=== PATIENT | male | born 1985 | race Two or more races ===

== ENCOUNTER 2024-04-19 17:59 | Emergency (ER) | payer BC ==
[2024-04-19] MEDS: SODIUM CHLORIDE 0.9% 1,000 ML IV STA (20:14)
[2024-04-19] MEDS: MECLIZINE 12.5 MG TAB PO STA (20:14)
[2024-04-19 20:28] LABS: Basophils # (A) 0.1 k/uL (0-0.2); Basophils % (A) 1 %; Eosinophils # (A) 0.2 k/uL (0-0.7); Eosinophils % (A) 2 %; HCT 44.2 % (39.0-53.0); HGB 14.2 gm/dL (13.0-17.5); Lymphocytes # (A) 2.8 k/uL (1.0-4.8); Lymphocytes % (A) 26 %; MCHC 32.2 g/dL (31.0-37.0); MCV 84.1 fL (80.0-100.0); Monocytes # (A) 0.6 k/uL (0-1.0); Monocytes % (A) 5 %; Neutrophils % (A) 65 %; Platelet Count 261 k/uL (150-450); RBC 5.26 m/uL (4.30-5.90); RDW 13.3 % (11.5-15.5); WBC 10.9 k/uL (3.8-10.6)
--- NOTE | 2024-04-19 20:36 | ED ---
Dizziness HPI - General Chief Complaint: Dizziness Stated Complaint: Syncope, vomiting, swollen legs Time Seen by Provider: 04/19/24 19:16 Source: patient Mode of arrival: ambulatory Limitations: no limitations - History of Present Illness Initial Comments: 39-year-old male presenting with chief complaint of dizziness. States that yesterday he restarted his Effexor. That evening he had 2 sips of his 's alcoholic drink. States that he later became dizzy and he did pass out at 1 point. states that he was sweaty and his coloring was off. States that since then he has felt a bit dizzy. Also admits to nausea with 1 episode of vomiting. No head injury. No chest pain or difficulty breathing. No numbness or tingling. - Related Data Allergies Allergy/AdvReac Type Severity Reaction Status Date / Time No Known Allergies Allergy Verified 04/19/24 18:05 Review of Systems ROS Statement: Those systems with pertinent positive or pertinent negative responses have been documented in the HPI. ROS Other: All systems not noted in ROS Statement are negative. Past Medical History Past Medical History: Asthma History of Any Multi-Drug Resistant Organisms: None Reported Past Surgical History: No Surgical Hx Reported Past Psychological History: ADD/ADHD, Anxiety, Depression Smoking Status: Current every day smoker Past Alcohol Use History: Occasional Past Drug Use History: Marijuana General Exam Limitations: no limitations General appearance: alert, in no apparent distress Head exam: Present: atraumatic, normocephalic, normal inspection Eye exam: Present: normal appearance, PERRL, EOMI Pupils: Present: normal accommodation Neck exam: Present: normal inspection. Absent: meningismus Respiratory exam: Absent: respiratory distress Cardiovascular Exam: Present: regular rate Extremities exam: Present: full ROM Neurological exam: Present: alert, oriented X3 Expanded Patient oriented to: Present: person, place, time Speech: Present: fluid speech Cranial nerves: EOM's Intact: Normal Motor strength exam: RUE: 5, LUE: 5, RLE: 5, LLE: 5 Eye Response: (4) open spontaneously Motor Response: (6) obeys commands Verbal Response: (5) oriented Scot Total: 15 Psychiatric exam: Present: normal affect, normal mood Skin exam: Present: warm, dry Course Vital Signs 04/19/24 04/19/24 04/20/24 18:02 23:45 00:07 Temperature 97.7 F 98.6 F Pulse Rate 70 63 Respiratory 16 13 Rate Blood Pressure 150/96 Blood Pressure 145/85 [Right Arm Sitting] Blood Pressure 150/87 [Right Arm Standing] Blood Pressure 136/84 [Right Arm Supine] O2 Sat by Pulse 99 98 Oximetry EKG Findings - EKG Comments: EKG Findings:: Sinus rhythm ventricular rate 62. CA interval 165. QRS 102. QT 383. QTc 387. Medical Decision Making - Medical Decision Making Was pt. sent in by a medical professional or institution (, PA, ADULT DAY CARE WORKER, urgent care, hospital, or group home...) When possible be specific @ -No Did you speak to anyone other than the patient for history (EMS, parent, family, police, friend...)? What history was obtained from this source @ -No Did you review nursing and triage notes (agree or disagree)? Why? @ -I reviewed and agree with nursing and triage notes Were old charts reviewed (outside hosp., previous admission, EMS record, old EKG, old radiological studies, urgent care reports/EKG's, group home records)? Report findings @ -No old charts were reviewed Differential Diagnosis (chest pain, altered mental status, abdominal pain women, abdominal pain men, vaginal bleeding, weakness, fever, dyspnea, syncope, headache, dizziness, GI bleed, back pain, seizure, CVA, palpatations, mental health, musculoskeletal)? @ -MDM Differential Dizziness: Benign paroxysmal positional Vertigo, Menieres disease, otitis media, acoustic neuroma, vertebrobasilar insufficiency, cerebellar stroke, encephalitis, hypovolemic, arrhythmia, coronary artery syndrome, anemia this is not meant to be an all-inclusive list EKG interpreted by me (3pts min.). @ -As above X-rays interpreted by me (1pt min.). @ -Chest x-ray shows no acute process CT interpreted by me (1pt min.). @ -None done U/S interpreted by me (1pt. min.). @ -None done What testing was considered but not performed or refused? (CT, X-rays, U/S, labs)? Why? @ -None What meds were considered but not given or refused? Why? @ -None Did you discuss the management of the patient with other professionals (professionals i.e. Dr., PA, ADULT DAY CARE WORKER, lab, RT, psych nurse, social media sr strategy manager, wool washer, teacher, assistant chief nursing officer, manager of case)? Give summary @ -No Was smoking cessation discussed for >3mins.? @ -No Was critical care preformed (if so, how long)? @ -No Were there social determinants of health that impacted care today? How? (Homelessness, low income, unemployed, alcoholism, drug addiction, transportation, low edu. Level, literacy, decrease access to med. care, half-way, rehab)? @ -No Was there de-escalation of care discussed even if they declined (Discuss DNR or withdrawal of care, Hospice)? DNR status @ -No What co-morbidities impacted this encounter? (DM, HTN, Smoking, COPD, CAD, Cancer, CVA, ARF, Chemo, Hep., AIDS, mental health diagnosis, sleep apnea, morbid obesity)? @ -None Was patient admitted / discharged? Hospital course, mention meds given and route, prescriptions, significant lab abnormalities, going to OR and other pertinent info. @ -39-year-old male presenting with chief complaint of dizziness. Started last night, he restarted taking his Effexor and also did have some alcohol afterwards. He vomited and was feeling dizzy. History and physical examination are conducted. No focal neurological deficits. Negative orthostatic vitals. WBC 10.9, remainder of his laboratory studies are unremarkable. Chest x-ray shows no acute process and EKG shows sinus rhythm. Patient given IV fluids and meclizine, on reassessment he reports resolution of his symptoms. He is educated on today's findings. Discharged. Follow-up with PCP. Report back to ER with any new or worsening symptoms. Discussed return parameters and answered all questions. Patient conveyed verbal understanding and agreed to the plan. I discussed this case in detail with my attending Dr. Santiago Undiagnosed new problem with uncertain prognosis? @ -No Drug Therapy requiring intensive monitoring for toxicity (Heparin, Nitro, Insulin, Cardizem)? @ -No Were any procedures done? @ -No Diagnosis/symptom? @ -Dizziness Acute, or Chronic, or Acute on Chronic? @ -Acute Uncomplicated (without systemic symptoms) or Complicated (systemic symptoms)? @ -Uncomplicated Side effects of treatment? @ -No Exacerbation, Progression, or Severe Exacerbation? @ -No Poses a threat to life or bodily function? How? (Chest pain, USA, MS, pneumonia, PE, COPD, DKA, ARF, appy, cholecystitis, CVA, Diverticulitis, Homicidal, Suicid al, threat to staff... and all critical care pts) @ -Unlikely - Lab Data Result diagrams: 04/19/24 20:10 04/19/24 20:10 Lab Results 04/19/24 04/19/24 04/19/24 Range/Units 20:10 20:10 20:10 WBC 10.9 H (3.8-10.6) k/uL RBC 5.26 (4.30-5.90) m/uL Hgb 14.2 (13.0-17.5) gm/dL Hct 44.2 (39.0-53.0) % MCV 84.1 (80.0-100.0) fL MCH 27.0 (25.0-35.0) pg MCHC 32.2 (31.0-37.0) g/dL RDW 13.3 (11.5-15.5) % Plt Count 261 (150-450) k/uL MPV 7.0 Neutrophils % 65 % Lymphocytes % 26 % Monocytes % 5 % Eosinophils % 2 % Basophils % 1 % Neutrophils # 7.0 (1.3-7.7) k/uL Lymphocytes # 2.8 (1.0-4.8) k/uL Monocytes # 0.6 (0-1.0) k/uL Eosinophils # 0.2 (0-0.7) k/uL Basophils # 0.1 (0-0.2) k/uL PT 10.7 (10.0-12.5) sec INR 1.0 (<1.2) Sodium 137 (137-145) mmol/L Potassium 4.3 (3.5-5.1) mmol/L Chloride 103 (98-107) mmol/L Carbon Dioxide 27 (22-30) mmol/L Anion Gap 7 mmol/L BUN 13 (9-20) mg/dL Creatinine 0.94 (0.66-1.25) mg/dL Est GFR (CKD-EPI)AfAm >90 (>60 ml/min/1.73 sqM) Est GFR (CKD-EPI)NonAf >90 (>60 ml/min/1.73 sqM) Glucose 87 (74-99) mg/dL Plasma Lactic Acid William (0.7-2.0) mmol/L Calcium 9.1 (8.4-10.2) mg/dL Total Bilirubin 0.6 (0.2-1.3) mg/dL AST 21 (17-59) U/L ALT 23 (4-49) U/L Alkaline Phosphatase 67 (38-126) U/L Troponin I (0.000-0.034) ng/mL Total Protein 6.9 (6.3-8.2) g/dL Albumin 4.1 (3.5-5.0) g/dL 04/19/24 04/19/24 Range/Units 20:10 20:10 WBC (3.8-10.6) k/uL RBC (4.30-5.90) m/uL Hgb (13.0-17.5) gm/dL Hct (39.0-53.0) % MCV (80.0-100.0) fL MCH (25.0-35.0) pg MCHC (31.0-37.0) g/dL RDW (11.5-15.5) % Plt Count (150-450) k/uL MPV Neutrophils % % Lymphocytes % % Monocytes % % Eosinophils % % Basophils % % Neutrophils # (1.3-7.7) k/uL Lymphocytes # (1.0-4.8) k/uL Monocytes # (0-1.0) k/uL Eosinophils # (0-0.7) k/uL Basophils # (0-0.2) k/uL PT (10.0-12.5) sec INR (<1.2) Sodium (137-145) mmol/L Potassium (3.5-5.1) mmol/L Chloride (98-107) mmol/L Carbon Dioxide (22-30) mmol/L Anion Gap mmol/L BUN (9-20) mg/dL Creatinine (0.66-1.25) mg/dL Est GFR (CKD-EPI)AfAm (>60 ml/min/1.73 sqM) Est GFR (CKD-EPI)NonAf (>60 ml/min/1.73 sqM) Glucose (74-99) mg/dL Plasma Lactic Acid William 0.8 (0.7-2.0) mmol/L Calcium (8.4-10.2) mg/dL Total Bilirubin (0.2-1.3) mg/dL AST (17-59) U/L ALT (4-49) U/L Alkaline Phosphatase (38-126) U/L Troponin I <0.012 (0.000-0.034) ng/mL Total Protein (6.3-8.2) g/dL Albumin (3.5-5.0) g/dL Disposition Clinical Impression: Dizziness Disposition: HOME SELF-CARE Condition: Good Instructions (If sedation given, give patient instructions): Dizziness (ED) Additional Instructions: Follow up with PCP. Report back to ER with any new or worsening symptoms. Is patient prescribed a controlled substance at d/c from ED?: No Referrals: Nonstaff,Physician [Primary Care Provider] - 1-2 days Time of Disposition: 23:46
[2024-04-19 20:45] LABS: Prothrombin Time 10.7 sec (10.0-12.5)
[2024-04-19 20:51] LABS: ALT 23 U/L (4-49); AST 21 U/L (17-59); African American GFR (CKD) >90 (>60 ml/min/1.73 sqM); Albumin 4.1 g/dL (3.5-5.0); Alkaline Phosphatase 67 U/L (38-126); Anion Gap 7 mmol/L; Blood Urea Nitrogen 13 mg/dL (9-20); Calcium 9.1 mg/dL (8.4-10.2); Carbon Dioxide 27 mmol/L (22-30); Chloride 103 mmol/L (98-107); Glucose 87 mg/dL (74-99); Non-African American GFR(CKD) >90 (>60 ml/min/1.73 sqM); Potassium 4.3 mmol/L (3.5-5.1); Sodium 137 mmol/L (137-145); Total Bilirubin 0.6 mg/dL (0.2-1.3); Total Protein 6.9 g/dL (6.3-8.2)
--- NOTE | 2024-04-19 21:02 | XR ---
EXAMINATION TYPE: XR chest 2V DATE OF EXAM: 04/19/2024 8:57 PM CLINICAL INDICATION:Male, 39 years old with history of dizziness; [facility] COMPARISON: None TECHNIQUE: XR chest 2V Frontal and lateral views of the chest. FINDINGS: Lungs/Pleura: There is no evidence of pleural effusion, focal consolidation, or pneumothorax. Pulmonary vascularity: Unremarkable. Heart/mediastinum: Cardiomediastinal silhouette is unremarkable. Musculoskeletal: No acute osseous pathology. IMPRESSION: No acute cardiopulmonary disease/process. [facility], , 04/19/2024 9:00 PM
[2024-04-19 23:46] VITALS: BP 136/84
[2024-04-20 00:08] VITALS: PULSE 63; RESP 13; TEMP 98.6
== END 2024-04-20 00:04 | disposition home or self-care (01) ==
LOC: EC 17:59
CPT/HCPCS: 36415; 71046; 80053; 83605; 84484; 85025; 85610; 93005; 96360; 99284

== ENCOUNTER 2024-12-17 08:18 | Emergency (ER) | payer BC ==
[2024-12-17 08:25] VITALS: TEMP 97.7
--- NOTE | 2024-12-17 08:40 | ED ---
General Adult HPI - General Chief complaint: Syncope Stated complaint: passed out and hit head, indigestion Time Seen by Provider: 12/17/24 08:37 Source: patient, family (), RN notes reviewed, old records reviewed Mode of arrival: ambulatory Limitations: no limitations - History of Present Illness Initial comments: 39-year-old male presented to ER for evaluation of syncope. is aiding in HPI. Patient reports he was sitting in his garage smoking a cigarette when he suddenly became very nauseous. He states he stood up and went outside to vomit when he became extremely dizzy and lightheaded and passed out. reports he fell from a standing position straight backwards hitting his head on a car moon that immediately rolled away. She states he was unconscious long enough for her to "do 3 chest compressions". She states she did not check for a pulse prior to doing the compressions. reports patient's eyes appeared as if he was "not there". Patient then came to with continuous nauseous feeling. He denies any reoccurring bouts of emesis. No hematemesis or coffee-ground emesis. Patient denies any visual disturbances, weakness, chest pain, shortness of breath, urinary complaints, constipation/diarrhea. Patient admits to a history of diabetes but is not currently on any medications. reports this has happened 3 times in the past. No history of seizure. No other complaints no other injuries from fall - Related Data Allergies Allergy/AdvReac Type Severity Reaction Status Date / Time No Known Allergies Allergy Verified 12/17/24 08:25 Review of Systems ROS Statement: Those systems with pertinent positive or pertinent negative responses have been documented in the HPI. ROS Other: All systems not noted in ROS Statement are negative. Past Medical History Past Medical History: Asthma History of Any Multi-Drug Resistant Organisms: None Reported Past Surgical History: No Surgical Hx Reported Past Psychological History: ADD/ADHD, Anxiety, Depression Smoking Status: Current every day smoker Past Alcohol Use History: Occasional Past Drug Use History: Marijuana General Exam Limitations: no limitations General appearance: alert, in no apparent distress Head exam: Present: atraumatic, normocephalic, normal inspection Eye exam: Present: normal appearance, PERRL, EOMI. Absent: scleral icterus, conjunctival injection, periorbital swelling Pupils: Present: normal accommodation ENT exam: Present: normal exam, normal oropharynx, mucous membranes moist Respiratory exam: Present: normal lung sounds bilaterally. Absent: respiratory distress, wheezes, rales, rhonchi, stridor Cardiovascular Exam: Present: regular rate, normal rhythm, normal heart sounds. Absent: systolic murmur, diastolic murmur, rubs, gallop, clicks GI/Abdominal exam: Present: soft, normal bowel sounds. Absent: distended, tenderness, guarding, rebound, rigid Extremities exam: Present: normal inspection, full ROM, normal capillary refill. Absent: tenderness, pedal edema, joint swelling, calf tenderness Neurological exam: Present: alert, oriented X3, CN II-XII intact Skin exam: Present: warm, dry, intact, normal color. Absent: rash Course Vital Signs 12/17/24 12/17/24 12/17/24 08:20 09:05 10:12 Temperature 97.7 F Pulse Rate 58 L 57 L 59 L Respiratory 18 12 17 Rate Blood Pressure 141/94 118/81 O2 Sat by Pulse 98 97 99 Oximetry 12/17/24 11:02 Temperature Pulse Rate 58 L Respiratory 15 Rate Blood Pressure 123/91 O2 Sat by Pulse 97 Oximetry EKG Findings - EKG Comments: EKG Findings:: EKG taken at 8: 33 showing a sinus bradycardia. No ST segment elevations or depressions. No T wave inversions. Ventricular rate 59, NJ interval 172, QRS duration 98, QT/QTc 388/388 Medical Decision Making - Medical Decision Making Was pt. sent in by a medical professional or institution (, PA, FINANCIAL ACCOUNTING MANAGER, urgent care, hospital, or shelter...) When possible be specific @ -No Did you speak to anyone other than the patient for history (EMS, parent, family, police, friend...)? What history was obtained from this source @ -Significant other, at bedside, aiding in HPI and past medical history. Did you review nursing and triage notes (agree or disagree)? Why? @ -I reviewed and agree with nursing and triage notes Were old charts reviewed (outside hosp., previous admission, EMS record, old EKG, old radiological studies, urgent care reports/EKG's, shelter records)? Report findings @ -No old charts were reviewed Differential Diagnosis (chest pain, altered mental status, abdominal pain women, abdominal pain men, vaginal bleeding, weakness, fever, dyspnea, syncope, headache, dizziness, GI bleed, back pain, seizure, CVA, palpatations, mental health, musculoskeletal)? @ -Differential Syncope:Valvular disease, hypertrophic cardiomyopathy, pulmonary embolism, tamponade, tachycardia, bradycardia, IA, hypovolemia, hemorrhage, dissection, anemia, intracranial hemorrhage, seizure, hypoglycemia, carbon monoxide poisoning, this is not meant to be an all-inclusive list. EKG interpreted by me (3pts min.). @ -As above X-rays interpreted by me (1pt min.). @ -CXR interpreted me negative for acute focal consolidation, pneumothorax or pleural effusions. CT interpreted by me (1pt min.). @ -CT brain negative for acute intracranial hemorrhage or midline shift. U/S interpreted by me (1pt. min.). @ -None done What testing was considered but not performed or refused? (CT, X-rays, U/S, labs)? Why? @ -None What meds were considered but not given or refused? Why? @ -None Did you discuss the management of the patient with other professionals (professionals i.e. , PA, FINANCIAL ACCOUNTING MANAGER, lab, RT, psych nurse, social media job titles, brain picker, teacher, patrol community service officer, porter sample case)? Give summary @ -No Was smoking cessation discussed for >3mins.? @ -I discussed smoking cessation for greater than 3 minutes. The risk of smoking were discussed with the patient including but not limited to risks of cancer, stroke, coronary artery disease and COPD. Also discussed with patient were multiple methods of quitting smoking. Lastly we discussed the financial cost of smoking. Was critical care preformed (if so, how long)? @ -No Were there social determinants of health that impacted care today? How? (Homelessness, low income, unemployed, alcoholism, drug addiction, transportation, low edu. Level, literacy, decrease access to med. care, long-term, rehab)? @ -No Was there de-escalation of care discussed even if they declined (Discuss DNR or withdrawal of care, Hospice)? DNR status @ -No What co-morbidities impacted this encounter? (DM, HTN, Smoking, COPD, CAD, Cancer, CVA, ARF, Chemo, Hep., AIDS, mental health diagnosis, sleep apnea, morbid obesity)? @ -Asthma Was patient admitted / discharged? Hospital course, mention meds given and route, prescriptions, significant lab abnormalities, going to OR and other pertinent info. @ -Discharge. 39-year-old male presented to ER for evaluation of syncopal episode last night. Upon arrival patient, bradycardic at 58 bpm vitals otherwise acceptable limits. Patient in no signs of acute distress nontoxic- appearing. Patient ANO x 3. No acute neurological findings on exam. Laboratory studies obtained unimpressive. WBC 10.5 no left shift. Troponin undetectable, <0.012. No significant electrolyte abnormality. Urinalysis unremarkable. EKG showing sinus bradycardia no acute evidence of infarct or ischemia. Given patient reporting head injury with LOC per , CT brain was obtained and negative for acute intracranial process. Chest x-ray also negative for acute process. Upon reevaluation, patient resting comfortably in exam room no signs of acute distress. Patient and patient's educated on today's findings. Patient is requesting discharge at this time. He will be discharged in stable condition advised to follow-up closely with PCP in the next 1 to 2 days. Return parameters discussed. Patient verbally expressed understanding agree with care plan. Case discussed with ED attending by Dr. Hernandez. Undiagnosed new problem with uncertain prognosis? @ -No Drug Therapy requiring intensive monitoring for toxicity (Heparin, Nitro, Insulin, Cardizem)? @ -No Were any procedures done? @ -No Diagnosis/symptom? @ -Syncope Acute, or Chronic, or Acute on Chronic? @ -Acute Uncomplicated (without systemic symptoms) or Complicated (systemic symptoms)? @ -Uncomplicated Side effects of treatment? @ -No Exacerbation, Progression, or Severe Exacerbation? @ -No Poses a threat to life or bodily function? How? (Chest pain, USA, IA, pneumonia, PE, COPD, DKA, ARF, appy, cholecystitis, CVA, Diverticulitis, Homicidal, Suicidal, threat to staff... and all critical care pts) @ -Low at this time - Lab Data Result diagrams: 12/17/24 08:57 12/17/24 08:57 Lab Results 12/17/24 12/17/24 12/17/24 Range/Units 08:57 08:57 08:57 WBC 10.57 H (4.50-10.00) 10*3/uL RBC 5.08 (4.40-5.60) 10*6/uL Hgb 13.9 (13.0-17.0) g/dL Hct 41.5 (39.6-50.0) % MCV 81.7 (80.0-97.0) fL MCH 27.4 (27.0-32.0) pg MCHC 33.5 (32.0-37.0) g/dL Plt Count 262 (140-440) 10*3/uL MPV 9.9 (9.5-12.2) fL Immature Gran % (Auto) 0.3 % Neutrophils % 63.8 % Lymphocytes % 25.9 % Monocytes % 7.1 % Eosinophils % 2.4 % Basophils % 0.5 % Immature Gran # 0.03 (0.00-0.04) 10*3/uL Neutrophils # 6.75 (1.80-7.70) 10*3/uL Lymphocytes # 2.74 (0.90-5.00) 10*3/uL Monocytes # 0.75 (0.20-1.00) 10*3/uL Eosinophils # 0.25 (0.04-0.35) 10*3/uL Basophils # 0.05 (0.00-0.10) 10*3/uL PT 10.3 (10.0-12.5) sec INR 0.9 (<1.2) APTT 23.8 (22.0-30.0) sec Sodium 138 (137-145) mmol/L Potassium 4.1 (3.5-5.1) mmol/L Chloride 106 (98-107) mmol/L Carbon Dioxide 26 (22-30) mmol/L Anion Gap 6 mmol/L BUN 14 (9-20) mg/dL Creatinine 0.86 (0.66-1.25) mg/dL Est GFR (CKD-EPI)AfAm >90 (>60 ml/min/1.73 sqM) Est GFR (CKD-EPI)NonAf >90 (>60 ml/min/1.73 sqM) Glucose 110 H (74-99) mg/dL Plasma Lactic Acid William (0.7-2.0) mmol/L Calcium 8.8 (8.4-10.2) mg/dL Total Bilirubin 0.5 (0.2-1.3) mg/dL AST 20 (17-59) U/L ALT 28 (4-49) U/L Alkaline Phosphatase 61 (38-126) U/L Troponin I (0.000-0.034) ng/mL Total Protein 6.6 (6.3-8.2) g/dL Albumin 3.9 (3.5-5.0) g/dL Urine Color Urine Appearance (Clear) Urine pH (5.0-8.0) Ur Specific [place] (1.001-1.035) Urine Protein (Negative) Urine Glucose (UA) (Negative) Urine Ketones (Negative) Urine Blood (Negative) Urine Nitrite (Negative) Urine Bilirubin (Negative) Urine Urobilinogen (<2.0) mg/dL Ur Leukocyte Esterase (Negative) 12/17/24 12/17/24 12/17/24 Range/Units 08:57 08:57 10:00 WBC (4.50-10.00) 10*3/uL RBC (4.40-5.60) 10*6/uL Hgb (13.0-17.0) g/dL Hct (39.6-50.0) % MCV (80.0-97.0) fL MCH (27.0-32.0) pg MCHC (32.0-37.0) g/dL Plt Count (140-440) 10*3/uL MPV (9.5-12.2) fL Immature Gran % (Auto) % Neutrophils % % Lymphocytes % % Monocytes % % Eosinophils % % Basophils % % Immature Gran # (0.00-0.04) 10*3/uL Neutrophils # (1.80-7.70) 10*3/uL Lymphocytes # (0.90-5.00) 10*3/uL Monocytes # (0.20-1.00) 10*3/uL Eosinophils # (0.04-0.35) 10*3/uL Basophils # (0.00-0.10) 10*3/uL PT (10.0-12.5) sec INR (<1.2) APTT (22.0-30.0) sec Sodium (137-145) mmol/L Potassium (3.5-5.1) mmol/L Chloride (98-107) mmol/L Carbon Dioxide (22-30) mmol/L Anion Gap mmol/L BUN (9-20) mg/dL Creatinine (0.66-1.25) mg/dL Est GFR (CKD-EPI)AfAm (>60 ml/min/1.73 sqM) Est GFR (CKD-EPI)NonAf (>60 ml/min/1.73 sqM) Glucose (74-99) mg/dL Plasma Lactic Acid William 0.8 (0.7-2.0) mmol/L Calcium (8.4-10.2) mg/dL Total Bilirubin (0.2-1.3) mg/dL AST (17-59) U/L ALT (4-49) U/L Alkaline Phosphatase (38-126) U/L Troponin I <0.012 (0.000-0.034) ng/mL Total Protein (6.3-8.2) g/dL Albumin (3.5-5.0) g/dL Urine Color Light Yellow Urine Appearance Clear (Clear) Urine pH 6.0 (5.0-8.0) Ur Specific [place] 1.024 (1.001-1.035) Urine Protein Negative (Negative) Urine Glucose (UA) Negative (Negative) Urine Ketones Negative (Negative) Urine Blood Negative (Negative) Urine Nitrite Negative (Negative) Urine Bilirubin Negative (Negative) Urine Urobilinogen <2.0 (<2.0) mg/dL Ur Leukocyte Esterase Negative (Negative) - Radiology Data Radiology results: report reviewed, image reviewed Disposition Clinical Impression: Syncope Disposition: HOME SELF-CARE Condition: Stable Instructions (If sedation given, give patient instructions): Syncope (DC) Additional Instructions: Follow-up closely PCP. Return to the ER for any new or worsening concerns. Is patient prescribed a controlled substance at d/c from ED?: No Referrals: [facility] [NON-STAFF] - 1-2 days (Contact a primary care office to become established with a provider. ) [facility] [NON-STAFF] - 1-2 days None,Stated [Primary Care Provider] - 1-2 days Forms: Area PCPs Time of Disposition: 10:54
[2024-12-17 09:05] LABS: Basophils # (A) 0.05 10*3/uL (0.00-0.10); Basophils % (A) 0.5 %; Eosinophils # (A) 0.25 10*3/uL (0.04-0.35); Eosinophils % (A) 2.4 %; HCT 41.5 % (39.6-50.0); HGB 13.9 g/dL (13.0-17.0); Lymphocytes # (A) 2.74 10*3/uL (0.90-5.00); Lymphocytes % (A) 25.9 %; MCH 27.4 pg (27.0-32.0); MCHC 33.5 g/dL (32.0-37.0); MCV 81.7 fL (80.0-97.0); Mean Platelet Volume 9.9 fL (9.5-12.2); Monocytes # (A) 0.75 10*3/uL (0.20-1.00); Monocytes % (A) 7.1 %; Neutrophils # (A) 6.75 10*3/uL (1.80-7.70); Neutrophils % (A) 63.8 %; Platelet Count 262 10*3/uL (140-440); RBC 5.08 10*6/uL (4.40-5.60); RDW 13.1 % (11.5-14.5); WBC 10.57 10*3/uL (4.50-10.00)
[2024-12-17 09:16] LABS: INR 0.9 (<1.2); Partial Thromboplastin Time 23.8 sec (22.0-30.0); Prothrombin Time 10.3 sec (10.0-12.5)
[2024-12-17 09:30] LABS: ALT 28 U/L (4-49); AST 20 U/L (17-59); African American GFR (CKD) >90 (>60 ml/min/1.73 sqM); Albumin 3.9 g/dL (3.5-5.0); Alkaline Phosphatase 61 U/L (38-126); Anion Gap 6 mmol/L; Blood Urea Nitrogen 14 mg/dL (9-20); Calcium 8.8 mg/dL (8.4-10.2); Carbon Dioxide 26 mmol/L (22-30); Chloride 106 mmol/L (98-107); Glucose 110 mg/dL (74-99); Non-African American GFR(CKD) >90 (>60 ml/min/1.73 sqM); Potassium 4.1 mmol/L (3.5-5.1); Sodium 138 mmol/L (137-145); Total Bilirubin 0.5 mg/dL (0.2-1.3); Total Protein 6.6 g/dL (6.3-8.2)
--- NOTE | 2024-12-17 09:57 | CT ---
EXAMINATION TYPE: CT brain wo con DATE OF EXAM: 12/17/2024 COMPARISON: None. CLINICAL INDICATION: Male, 39 years old with history of syncope; [facility], Syncope with fall. CT DLP: 1188.4 mGycm Automated exposure control for dose reduction was used. FINDINGS: No acute intracranial hemorrhage, mass effect, or midline shift. Ventricles and sulci within normal l imits in size for patient's age. Whiting-white matter differentiation is preserved. There are mucous ret ention cysts or polyps in the inferior right maxillary sinus. Globes are intact bilaterally. No suspi cious opacification of the mastoid air cells. IMPRESSION: NO ACUTE INTRACRANIAL HEMORRHAGE OR MIDLINE SHIFT. [facility], , 12/17/2024 9:54 AM
--- NOTE | 2024-12-17 10:04 | XR ---
EXAMINATION TYPE: XR chest 2V DATE OF EXAM: 12/17/2024 9:45 AM COMPARISON: 04/19/2024 CLINICAL INDICATION: Male, 39 years old with history of syncope, TECHNIQUE: XR chest 2V view(s) obtained. FINDINGS: The heart size is normal. The pulmonary vasculature is normal. The lungs are clear. IMPRESSION: 1. No acute pulmonary process. [facility], , 12/17/2024 10:02 AM
[2024-12-17 10:16] LABS: Appearance,Urine Clear (Clear); Bilirubin,Urine Negative (Negative); Blood,Urine Negative (Negative); Color,Urine Light Yellow; Glucose,Urine (UA) Negative (Negative); Ketones,Urine Negative (Negative); Leukocyte Esterase,Urine Negative (Negative); Nitrite,Urine Negative (Negative); Protein,Urine Negative (Negative); Specific Gravity,Urine 1.024 (1.001-1.035); Urobilinogen,Urine <2.0 mg/dL (<2.0)
[2024-12-17 11:03] VITALS: BP 123/91; PULSE 58; RESP 15
== END 2024-12-17 11:03 | disposition home or self-care (01) ==
LOC: EC 08:18
DX: R55 Syncope and collapse (principal); J45.909 Unspecified asthma, uncomplicated; F17.200 Nicotine dependence, unspecified, uncomplicated
CPT/HCPCS: 36415; 70450; 71046; 80053; 81003; 83605; 84484; 85025; 85610; 85730; 93005; 99285